=== PATIENT | female | born 1955 | race Two or more races ===

== ENCOUNTER 2024-11-15 19:02 | Emergency (ER) | payer MEDICARE, MEDICAID ==
[~2024-11-15] VITALS: Ht 165.1 cm; Wt 61.8 kg
[2024-11-15 19:29] VITALS: TEMP 98
[2024-11-15] MEDS: ALBUTEROL SULF 2.5 MG/0.5ML(0.5%) NEB SOLN NEB ONE (19:30)
[2024-11-15] MEDS: IPRATROPIUM BROM 0.5 MG/2.5ML INH SOL NEB ONE (19:30)
--- NOTE | 2024-11-15 19:38 | ED.PDOC ---
General HPI Comments 69-year-old female came to ER for flank pains. Patient has history of recurrent UTI, pancreatitis and COPD. Patient states she has been having intermittent right flank pains and back pains few months. Recently treated for UTI. Persistence of flank pains. Patient has a complaining of shortness a breath especially with movements. Patient is not on oxygen. Patient is saturating 88% on room air upon arrival Chief Complaint: Flank Pain Time Seen by MD: 19:38 Reviewed notes: Nurses Notes Allergies: Coded Allergies: NO KNOWN ALLERGIES (Unverified , 11/15/24) Home Meds Active Scripts Gabapentin (Once-Daily) (Gabapentin) 300 Mg Tab, 300 MG PO Q6HP PRN, #30 TAB Prov:LIANA WEEMS MD 11/15/24 Cefdinir (Cefdinir) 300 Mg Cap, 1 CAP PO BID for 7 Days, #14 CAP Prov:LIANA WEEMS MD 11/15/24 Ondansetron Odt 4MG Tab (ZOFRAN PO) 4 Mg Tb, 4 MG PO Q6HP PRN, #30 TAB ODT TAB-DISSOLVE IN MOUTH, THEN SWALLOW Prov:LIANA WEEMS MD 11/15/24 Information Source: Patient Mode of Arrival: Ambulatory Severity: Moderate Timing: Months Duration: Intermittent Onset: Spontaneous History of: UTI Location: (R) Flank associated signs and symptoms: Abdominal Pain, Flank Pain, Back Pain Past Medical History PAST MEDICAL HISTORY: COPD, UTI'S Past Medical History (Other): Pancreatitis Surgical History (Other): 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 OPERATOR Hx Family History Family History: Reviewed,noncontributory to illness Social History Smoker: Non-Smoker Alcohol: Denies ETOH Use Drugs: Denies Drug Use Lives In: Home Constitutional: denies: chills, diaphoresis, fatigue, fever, malaise, sweats, weakness, others EENTM: denies: blurred vision, double vision, ear bleeding, ear discharge, ear drainage, ear pain, ear ringing, eye pain, eye redness, hearing loss, mouth pain, mouth swelling, nasal discharge, nose bleeding, nose congestion, nose pain, photophobia, tearing, throat pain, throat swelling, voice changes, others Respiratory: reports: cough, SOB at rest, shortness of breath; denies: hemoptysis, orthopnea, SOB with excertion, stridor, wheezing, others Cardiovascular: denies: chest pain, dizzy spells, diaphoresis, Dyspnea on exertion, edema, irregular heart beat, left arm pain, lightheadedness, palp itations, PND, syncope, others Gastrointestinal: denies: abdomen distended, abdominal pain, blood streaked bowels, constipated, diarrhea, dysphagia, difficulty swallowing, hematemesis, melena, nausea, poor appetite, poor fluid intake, rectal bleeding, rectal pain, vomiting, others Genitourinary: reports: flank pain; denies: abnormal vagina bleeding, burning, dyspareunia, dysuria, frequency, hematuria, incontinence, pain, , vagina discharge, urgency, others Neurological: denies: dizziness, fainting, headache, left sided numbness, left sided weakness, numbness, paresthesia, pre-existing deficit, right sided numbness, right sided weakness, seizure, speech problems, tingling, tremors, weakness, others Musculoskeletal: reports: back pain; denies: gout, joint pain, joint swelling, muscle pain, muscle stiffness, neck pain, others Integumetry: denies: bruises, change in color, change in hair/nails, dryness, laceration, lesions, lumps, rash, wounds, others Allergic/Immunocompromised: denies: Difficulty Healing, Frequent Infections, Hives, Itching, others Hematologic/Lymphatic: denies: anemia, blood clots, easy bleeding, easy bruising, swollen glands, others Endocrine: denies: excessive hunger, excessive sweating, excessive thirst, excessive urination, flushing, intolerance to cold, intolerance to heat, unexplained weight gain, unexplained weight loss, others Psychiatric: denies: anxiety, bipolar disorder, depression, hopeless, panic disorder, schizophrenia, sleepless, suicidal, others Physical Exam General Appearance: No Apparent Distress, Normal HEENT: Normal ENT Inspection, Pharynx Normal, TMs Normal Neck: Full Range of Motion, Non-Tender, Normal, Normal Inspection Respiratory: Chest Non-Tender, Lungs Clear, No Accessory Muscle Use, No Respiratory Distress, Normal Breath Sounds Cardiovascular: No Edema, No JVD, No Murmur, No Gallop, Normal Peripheral Pulses, Regular Rate/Rhythm Breast Exam: Deferred Gastrointestinal: No Organomegaly, Non Tender, No Pulsatile Mass, Normal Bowel Sounds, Soft Genitalia: Deferred Pelvic: Deferred Rectal: Deferred Extremities: No calf tenderness, Normal capillary refill, Normal inspection, Normal range of motion, Non-tender, No pedal edema Musculoskeletal : Apperance: Normal Neurologic: Alert, wildlife technician II-XII nml as Tested, No Motor Deficits, Normal Affect, Normal Mood, No Sensory Deficits Cerebellar Function: Normal Reflexes: Normal Skin: Dry, Normal Color, Warm Lymphatic: No Adenopathy Was a procedure done? Was a procedure done?: No Differential Diagnosis Kidney stone (Female): Pancreatitis, Pyelonephritis, Renal failure, Strain, Urinary obstruction, Urolithiasis Urinary Problem (Female): Pyelonephritis, Urolithiasis, UTI X-Ray, Labs, Meds, VS Vital Signs Date Time Temp Pulse Resp B/P (MAP) Pulse Ox O2 Delivery O2 Flow Rate FiO2 11/15/24 20:10 105/53 (70) 11/15/24 20:07 95 18 94/59 (71) 95 11/15/24 20:07 95 18 95 Nasal Cannula* 2 28 11/15/24 19:46 18 93 Nasal Cannula* 2 28 11/15/24 19:29 98.0 94 18 121/61 (81) 88 98.0 11/15/24 19:29 85 Lab Test 11/15/24 19:59 Range/Units White Blood Count 7.8 4.4-10.8 10^3/uL Red Blood Count 4.46 4.0-5.20 10^6/uL Hemoglobin 15.3 12.2-16.2 g/dL Hematocrit 45.2 36.0-46.0 % Mean Corpuscular Volume 101.4 H 80.0-100.0 fL Mean Corpuscular Hemoglobin 34.3 H 28.0-32.0 pg Mean Corpuscular Hemoglobin Concent 33.8 32.0-36.0 g/dL Red Cell Distribution Width 16.3 H 11.8-14.3 % Platelet Count 35 L 140-450 10^3/uL Mean Platelet Volume 8.1 6.9-10.8 fL Neutrophils (%) (Auto) 45.5 37.0-80.0 % Lymphocytes (%) (Auto) 46.4 10.0-50.0 % Monocytes (%) (Auto) 6.7 0.0-12.0 % Eosinophils (%) (Auto) 0.5 0.0-7.0 % Basophils (%) (Auto) 0.9 0.0-2.0 % Neutrophils # (Auto) 3.6 1.6-8.6 10 ^3/uL Lymphocytes # (Auto) 3.6 0.4-5.4 10 ^3/uL Monocytes # (Auto) 0.5 0-1.3 10 ^3/uL Eosinophils # (Auto) 0 0-0.8 10 ^3/uL Basophils # (Auto) 0.1 0-0.2 10 ^3/uL Nucleated Red Blood Cells 0.2 % Platelet Estimate Decreased Anisocytosis (manual) Slight Macrocytosis Slight Sodium Level 139 136-145 mmol/L Potassium Level 3.6 3.5-5.1 mmol/L Chloride Level 101 98-107 mmol/L Carbon Dioxide Level 29 20-31 mmol/L Anion Gap 9 5-15 Blood Urea Nitrogen 12 9-23 mg/dL Creatinine 1.11 H 0.550-1.02 mg/dL Glomerular Filtration Rate Calc 53 >90 mL/min BUN/Creatinine Ratio 10.8 10.0-20.0 Serum Glucose 88 74-106 mg/dL Calcium Level 8.5 L 8.7-10.4 mg/dL Total Bilirubin 1.4 H 0.2-1.0 mg/dL Aspartate Amino Transferase (AST) 66 H 13-40 U/L Alanine Aminotransferase (ALT) 28 7-40 U/L Alkaline Phosphatase 166 H 46-116 U/L Total Protein 5.6 L 5.7-8.2 g/dL Albumin 3.6 3.2-4.8 g/dL Lipase 93 H 12-53 U/L Current Medications Medications (Trade) Dose Ordered Sig/Inez Route Start Time Stop Time Status Last Admin Acetaminophen/ Hydrocodone Bitart ([place] 10/325MG Tab) 1 tab ONCE ONCE PO 11/15/24 19:30 11/15/24 19:31 DC 11/15/24 19:59 Ondansetron HCl (Zofran Po) 4 mg ONCE ONCE PO 11/15/24 19:30 11/15/24 19:31 DC 11/15/24 20:00 Prednisone 20 mg ONCE ONCE PO 11/15/24 19:30 5/15/25 19:31 DC 11/15/24 19:59 Albuterol (Ventolin Medneb) 5 mg ONCE ONCE NEB 11/15/24 19:30 11/15/24 19:31 DC 11/15/24 19:30 Ipratropium [place] (Atrovent Medneb) 0.5 mg ONCE ONCE NEB 11/15/24 19:30 11/15/24 19:31 DC 11/15/24 19:30 Sodium Chloride 1,000 ml @ 1,000 mls/hr Q1H ONCE IVB 11/15/24 20:30 11/15/24 21:29 DC 11/15/24 20:45 Exam: CT CT AB PEL WO CON-NO ORAL OR IV History: abd pain, flank pain Comparison Study: None Technique: Multidetector spiral CT of the abdomen was performed from lung bases to pubic symphysis. Imaging was performed without IV contrast. Axial, coronal and sagittal multiplanar reformats were obtained from the axial data set by the technologist. Radiation Dose : 1. Abdomen/Pelvis: CTDIvol 8.57 mGy, DLP 386.86 mGy*cm. Findings: Evaluation of solid organs is limited due to lack of intravenous contrast use. Lung Bases: No acute or significant lung base finding. Normal heart size. No pleural or pericardial effusion. Liver: Hepatomegaly measuring up to 18 cm. No focal lesions. Multiple coarse calcifications are seen throughout the liver. Gallbladder and Biliary Tree: Unremarkable Spleen: Splenomegaly measuring up to 16.5 cm Pancreas: The pancreas is grossly normal in appearance. Adrenal Glands: Unremarkable Kidneys: Kidneys are grossly normal without calculi or hydronephrosis. Bladder: Grossly unremarkable for degree of distention. Bowel: The stomach is grossly normal in appearance. Small bowel and colon are normal in caliber and distribution. The appendix is not visualized; however, no secondary findings of acute appendicitis identified. Ascites: Absent Lymphadenopathy: No mesenteric, retroperitoneal or periportal lymphadenopathy. Abdominal Wall and Mesentery: Unremarkable. Vasculature: The visualized abdominal aorta is normal in size and caliber. Evaluation of abdominal and pelvic vessels is limited due to lack of intravenous contrast. Pelvic Organs: Unremarkable Musculoskeletal: No aggressive focal bony lesions, acute fractures or dislocation. Chronic compression deformities of the T12 and T11 vertebral bodies IMPRESSION: 1. No acute abdominal or pelvic findings. 2. Hepatosplenomegaly. Time of 1ST Reevaluation: 19:35 Reevaluation 1ST: Unchanged Patient Education/Counseling: Diagnosis, Treatment Family Education/Counseling: No Family Present Departure 1 Departure Time of Disposition: 21:30 Impression: Primary Impression: Chronic pancreatitis Additional Impression: UTI (urinary tract infection) Disposition: HOME / SELF CARE / HOMELESS Condition: Stable e-Prescriptions Gabapentin (Once-Daily) (Gabapentin) 300 Mg Tab 300 MG PO Q6HP PRN, #30 TAB Prov: LIANA WEEMS MD 11/15/24 Cefdinir (Cefdinir) 300 Mg Cap 1 CAP PO BID for 7 Days, #14 CAP Prov: LIANA WEEMS MD 11/15/24 Ondansetron Odt 4MG Tab (ZOFRAN PO) 4 Mg Tb 4 MG PO Q6HP PRN, #30 TAB ODT TAB-DISSOLVE IN MOUTH, THEN SWALLOW Prov: LIANA WEEMS MD 11/15/24 Discharged With: Self Critical Care Note Critical Care Time?: No Stability Stability form required: No Heart Score Heart Score: Heart Score Response (Comments) Value History N/A 0 EKG N/A 0 Age N/A 0 Risk Factors N/A 0 Troponin N/A 0 Total 0 I personally scribed for LIANA WEEMS MD ([email or web address]) on 11/15/24 at 19:38. Electronically submitted by Artemio Velasco ([email or web address]). I personally scribed for LIANA WEEMS MD ([email or web address]) on 11/15/24 at 20:58. Electronically submitted by Artemio Velasco ([email or web address]). LIANA WEEMS MD November 15, 2024 19:38
[2024-11-15] MEDS: HYDROcodone-ACET 10/325MG TAB PO ONE (19:59)
[2024-11-15] MEDS: predniSONE 20 MG TAB PO ONE (19:59)
[2024-11-15] MEDS: ONDANSETRON ODT 4 MG TAB PO ONE (20:00)
[2024-11-15 20:07] VITALS: PULSE 95; RESP 18; O2SAT 95
[2024-11-15 20:08] LABS: Basophils # (auto) 0.1 10 ^3/uL (0-0.2); Basophils % (auto) 0.9 % (0.0-2.0); Eosinophils # (auto) 0 10 ^3/uL (0-0.8); Eosinophils % (auto) 0.5 % (0.0-7.0); Hemoglobin 15.3 g/dL (12.2-16.2); Lymphocytes # (auto) 3.6 10 ^3/uL (0.4-5.4); Monocytes # (auto) 0.5 10 ^3/uL (0-1.3); Neutrophils % (auto) 45.5 % (37.0-80.0); Red Blood Cells 4.46 10^6/uL (4.0-5.20)
[2024-11-15 20:10] VITALS: BP 105/53
[2024-11-15 20:11] LABS: Hematocrit 45.2 % (36.0-46.0); Lymphocytes % (auto) 46.4 % (10.0-50.0); Mean Corpuscular Hemoglobin 34.3 pg (28.0-32.0); Mean Corpuscular Hgb Conc. 33.8 g/dL (32.0-36.0); Mean Corpuscular Volume 101.4 fL (80.0-100.0); Monocytes % (auto) 6.7 % (0.0-12.0); Neutrophils # (auto) 3.6 10 ^3/uL (1.6-8.6); Nucleated Red Blood Cells % 0.2 %; Red Cell Distribution Width 16.3 % (11.8-14.3); White Blood Cell 7.8 10^3/uL (4.4-10.8)
--- NOTE | 2024-11-15 20:11 | DVH ---
Exam: CT CT AB PEL WO CON-NO ORAL OR IV History: abd pain, flank pain Comparison Study: None Technique: Multidetector spiral CT of the abdomen was performed from lung bases to pubic symphysis. Imaging was performed without IV contrast. Axial, coronal and sagittal multiplanar reformats were ob tained from the axial data set by the technologist. Radiation Dose : 1. Abdomen/Pelvis: CTDIvol 8.57 mGy, DLP 386.86 mGy*cm. Findings: Evaluation of solid organs is limited due to lack of intravenous contrast use. Lung Bases: No acute or significant lung base finding. Normal heart size. No pleural or pericardial effusion. Liver: Hepatomegaly measuring up to 18 cm. No focal lesions. Multiple coarse calcifications are seen throughout the liver. Gallbladder and Biliary Tree: Unremarkable Spleen: Splenomegaly measuring up to 16.5 cm Pancreas: The pancreas is grossly normal in appearance. Adrenal Glands: Unremarkable Kidneys: Kidneys are grossly normal without calculi or hydronephrosis. Bladder: Grossly unremarkable for degree of distention. Bowel: The stomach is grossly normal in appearance. Small bowel and colon are normal in caliber and d istribution. The appendix is not visualized; however, no secondary findings of acute appendicitis id entified. Ascites: Absent Lymphadenopathy: No mesenteric, retroperitoneal or periportal lymphadenopathy. Abdominal Wall and Mesentery: Unremarkable. Vasculature: The visualized abdominal aorta is normal in size and caliber. Evaluation of abdominal a nd pelvic vessels is limited due to lack of intravenous contrast. Pelvic Organs: Unremarkable Musculoskeletal: No aggressive focal bony lesions, acute fractures or dislocation. Chronic compressio n deformities of the T12 and T11 vertebral bodies IMPRESSION: 1. No acute abdominal or pelvic findings. 2. Hepatosplenomegaly. Radiation optimization: All CT scans at this facility use at least one of these dose optimization dahlia hniques: automated exposure control mA and/or kV adjustment per patient size (includes targeted exam s where dose is matched to clinical indication) or iterative reconstruction.
[2024-11-15 20:16] LABS: Platelet Count (auto) 35 10^3/uL (140-450)
[2024-11-15 20:26] LABS: Alanine Aminotransferase 28 U/L (7-40)
[2024-11-15 20:27] LABS: Albumin 3.6 g/dL (3.2-4.8); Anion Gap 9 (5-15); BUN/Creatinine Ratio 10.8 (10.0-20.0); Blood Urea Nitrogen 12 mg/dL (9-23); Carbon Dioxide 29 mmol/L (20-31); Chloride 101 mmol/L (98-107); Glucose 88 mg/dL (74-106); Potassium 3.6 mmol/L (3.5-5.1); Sodium 139 mmol/L (136-145)
[2024-11-15 20:31] LABS: Platelet Estimate Decreased
[2024-11-15 20:32] LABS: Anisocytosis Slight; Macrocytosis Slight
[2024-11-15 20:35] LABS: Alkaline Phosphatase 166 U/L (46-116); Aspartate Aminotransferase 66 U/L (13-40); Bilirubin, Total 1.4 mg/dL (0.2-1.0); Calcium 8.5 mg/dL (8.7-10.4); Lipase 93 U/L (12-53); Total Protein 5.6 g/dL (5.7-8.2)
[2024-11-15] MEDS: SODIUM CHLORIDE 0.9% 1,000 ML IVB ONE (20:45)
--- NOTE | 2024-11-15 21:40 | DVH ---
CHEST RADIOGRAPH Indication: SOB Technique: Single frontal view of the chest was obtained Comparison: None FINDINGS: Lines and Tubes: None Lungs: No focal consolidation. Interstitial prominence. Hyperinflation of the lungs. Pleura: No effusion. No pneumothorax. Cardiomediastinal contours: Heart size is within normal limits with mild atherosclerotic calcificatio n and uncoiling of the aorta. Bones: No acute osseous abnormality. IMPRESSION: Mild pulmonary vascular congestion/senescent changes
[2024-11-15] MEDS ORDERED: ZOFR4T PO (21:43)
[2024-11-15] MEDS ORDERED: CEFD300C2 PO (21:43)
[2024-11-15] MEDS ORDERED: GABA300T4 PO (21:44)
[2024-11-15] MEDS ORDERED: cefTRIAXone SOD 1,000 MG VL IM ONE (21:45)
[2024-11-15] MEDS: cefTRIAXone 1GM/50ML D5W 50 ML IV ONE (22:57)
--- NOTE | 2024-11-16 14:41 | ECG ---
[facility] Test Date: 2024-11-15 Test Time: 19:29:47 Pat Name: VINICIUS WALKERDepartment: ER Room: Gender: F Manager Decision Support: [place] : 1955 Requested By: LIANA WEEMS Order Number: [id number] Reading MD: Steve Alonso Measurements Intervals [place] Rate: 85 P: 76 AR: 163 QRS: 59 QRSD: 93 T: 99 QT: 482 QTc: 574 Interpretive Statements Sinus rhythm Low voltage, precordial leads Nonspecific T abnrm, anterolateral leads Prolonged QT interval Baseline wander in lead(s) II Electronically Signed On 11-17-2024 21:00:38 PDT by Steve Alonso Please click the below link to view image of tracing.
[2024-11-17] MEDS ORDERED: ONDA-180 PO (19:55)
== END 2024-11-15 23:00 | disposition home or self-care (01) ==
LOC: ER 19:07
DX: K86.1 Other chronic pancreatitis (principal); N39.0 Urinary tract infection, site not specified; J44.9 Chronic obstructive pulmonary disease, unspecified; Z87.19 Personal history of other diseases of the digestive system; Z87.440 Personal history of urinary (tract) infections; Z89.202 Acquired absence of left upper limb, unspecified level
CPT/HCPCS: 36415; 71045; 74176; 80053; 83690; 85025; 93005; 94640; 96360; 99285; J7030; J7512; Q0162